=== PATIENT | male | born 1985 | race Caucasian/White ===

== ENCOUNTER 2018-07-16 00:39 | Emergency (ER) | payer SELFPAY ==
[~2018-07-16] VITALS: Ht 180.3 cm; Wt 130.7 kg
[2018-07-16 00:56] VITALS: Ht 180.3 cm; Wt 130.7 kg
[2018-07-16 02:35] VITALS: BP 132/85
== END 2018-07-16 02:38 | disposition home or self-care (01) ==
LOC: ED 00:39
DX: S60.222A Contusion of left hand, initial encounter (principal); S50.12XA Contusion of left forearm, initial encounter; W22.8XXA Striking against or struck by other objects, initial encounter; Y93.89 Activity, other specified; Y92.89 Other specified places as the place of occurrence of the external cause; Y99.8 Other external cause status